=== PATIENT | male | born 1975 | race Caucasian/White ===

== ENCOUNTER 2017-02-05 19:08 | Emergency (ER) | payer BC, OTHER ==
[2017-02-05 19:15] VITALS: BP 135/75
--- NOTE | 2017-02-05 19:19 | ERNOTE ---
Integumentary HPI - General Presenting Symptoms: insect bite Source: patient Exam Limitations: no limitations - Immun/Allergies/Home Medications Immunizations: IMMUNIZATION HX Immunizations Up to Date Yes History of Influenza Vaccine Yes Hx Pneumococcal Vaccination No Allergies/Adverse Reactions: Allergies Allergy/AdvReac Type Severity Reaction Status Date / Time No Known Allergies Allergy Verified 02/05/17 19:15 Home Medications: HOME MEDICATIONS NK [No Home Medication] 02/05/17 [Last Taken Unknown] - History of Present Illness Narrative: Patient was mowing yesterday when he stirred up a hornets nest and received multiple stings on his left hand, forehead and back. He has local swelling but denies any shortness of breath of throat swelling, no nausea or vomiting. He is here as his thought he needed to get checked out Date (Duration): 02/04/17 Time (Timing): 14:00 Location: Reports: hands Quality: Reports: itching Exposure: Reports: insect bite/spider Review of Systems - Review of Systems Constitutional: Absent: recent illness, fever ENT: Absent: sore throat Respiratory: Absent: shortness of breath, cough Cardiology: Absent: chest pain Gastrointestinal/Abdominal: Absent: nausea, vomiting, abdominal pain Skin: Present: See HPI Neurological: Absent: weakness, numbness - Patient's Past Medical History Patient History - Medical: No pertinent hx Patient History - Cardiac/Respiratory: No pertinent hx Patient History - Cancer: No Hx of Cancer Patient History - Surgical Procedures: No surgical history Patient History - Other: None - Social History Living Situations: home Psych History: No pertinent hx Smoking Status: Never smoker Alcohol Use: occasionally Drug Use: none - Immunizations Immunizations Up to Date: Yes Hx Pneumococcal Vaccination: No History of Influenza Vaccine: Yes Physical Exam - Physical Exam General Appearance: Present: wd/wn, alert, no apparent distress Head Exam: Present: other - sting on forehead with slight swelling Eye Exam: Normal inspection: bilateral, PERRL: bilateral Ears, Nose, Throat: Present: normal pharynx Respiratory: Present: no respiratory distress, normal breath sounds, no accessory muscle use, lungs clear Cardiovascular/Chest: Present: regular rate, rhythm, no murmur Extremity Exam: Present: normal except - - left hand few sting law, mild swelling Neurological Exam: Present: alert, oriented, normal mood/affect Skin Exam: Present: normal color, warm/dry ED Progress - Vital Signs Patient's Vital Signs:: I have reviewed the patient's vital signs. Vital Signs: Vital Signs 02/05/17 19:11 Temperature 37.0 C Pulse Rate 95 Respiratory 18 Rate Blood Pressure 135/75 O2 Sat by Pulse 96 Oximetry - Progress/Reassessment Chief Complaint: Insect Bite Departure Clinical Impression: Local reaction to insect sting Qualifiers: Encounter type: initial encounter Injury intent: accidental or unintentional Qualified Code(s): T63.481A - Toxic effect of venom of other arthropod, accidental (unintentional), initial encounter - Departure Disposition: Home self-care Condition: Good Instructions: Insect Bite Additional Instructions: you seem to be having only a local reaction take benadryl as needed follow up with your doctor as needed
== END 2017-02-05 19:31 | disposition home or self-care (01) ==
LOC: ER 19:08
DX: T63.451A Toxic effect of venom of hornets, accidental (unintentional), initial encounter (principal); W57.XXXA Bitten or stung by nonvenomous insect and other nonvenomous arthropods, initial encounter; Y93.H9 Activity, other involving exterior property and land maintenance, building and construction; Y92.007 Garden or yard of unspecified non-institutional (private) residence as the place of occurrence of the external cause